=== PATIENT | male | born 2000 | race Asian ===

== ENCOUNTER 2018-05-28 20:38 | Emergency (ER) | payer BC ==
[2018-05-28 21:21] LABS: AMPHETAMINE/METHAMPHETAMINE Negative (NEGATIVE); BARBITURATES Negative (NEGATIVE); BENZODIAZEPINES Negative (NEGATIVE); CANNABINOIDS Negative (NEGATIVE); COCAINE Negative (NEGATIVE); OPIATES Negative (NEGATIVE)
== END 2018-05-28 22:19 | disposition home or self-care (01) ==
LOC: FTE 20:38
DX: N39.9 Disorder of urinary system, unspecified (principal)
CPT/HCPCS: 80307; 99283

== ENCOUNTER → 2019-05-02 | Outpatient (CLI) | payer BC ==
[2019-05-02 13:47] LABS: HEPATITIS B SURFACE ANTIBODY NEGATIVE (NEGATIVE)
[2019-05-04 09:31] LABS: NIL 0.05 IU/mL; QUANTIFERON(R)-TB GOLD NEGATIVE (NEGATIVE); TB-NIL <0.00 IU/mL; TB2-NIL <0.00 IU/mL
== END | disposition home or self-care (01) ==
LOC: LAB 10:13
DX: Z01.84 Encounter for antibody response examination (principal)
CPT/HCPCS: 86480; 86706; 86787